=== PATIENT | female | born 1935 | race African-American/Black ===

== ENCOUNTER 2017-02-26 12:24 | Day surgery (SDC) | payer OTHER ==
[2017-02-26] MEDS: TETRACAINE 0.5% OPHTH 1 DOSE AFFEYE ONE ×2 (13:00→14:43)
[2017-02-26] MEDS ORDERED: ALPHAGAN-P OPHTH 1 DOSE AFFEYE ONE (13:01)
[2017-02-26 13:24] VITALS: BP 145/71
== END 2017-02-26 14:50 | disposition home or self-care (01) ==
LOC: SURG1 12:24
PROVIDERS: ATTEND Ophthalmology
PROC: 08QD3ZZ Repair Left Iris, Percutaneous Approach (ICD-10-PCS; principal; 2017-02-26 23:15)
DX: H40.1122 Primary open-angle glaucoma, left eye, moderate stage (principal)
CPT/HCPCS: 65855